=== PATIENT | female | born 1965 | race Caucasian/White ===

== ENCOUNTER → 2018-02-01 13:01 | Outpatient (CLI) | payer OTHER, SELFPAY ==
--- NOTE | 2018-02-01 | DI.CT.S_ITS ---
PROCEDURE: CT ABDOMEN PELVIS WO/W CON INDICATIONS: GROSS HEMATURIA TECHNIQUE: Optional 5 mm thick noncontrast images acquired from the diaphragm to the symphysis pubis. After the administration of intravenous contrast, 5 mm thick images acquired from the diaphragm to the symphysis pubis after a 10-minute delay. 2 mm thick coronal and sagittal reformats were then performed of the kidneys and ureters. For radiation dose reduction, the following was used: automated exposure control, adjustment of mA and/or kV according to patient size. COMPARISON: None. FINDINGS: Image quality: Excellent. Lung bases: Lung bases are clear. Heart size is normal. Urinary system: Both kidneys are normal in size, without hydronephrosis or nephrolithiasis on pre-contrast images. No perinephric fat stranding. There is normal bilateral renal enhancement. Renal calyces appear normal in morphology when filled with contrast. Opacified portions of both ureters demonstrate normal caliber. Bladder wall thickness is normal. No calcified bladder stones. Other solid organs: Liver is normal in size and enhancement. Gallbladder appears normal. Biliary system is non dilated. Pancreas enhances normally. Spleen is normal in size and enhancement. No adrenal nodules. Peritoneum and bowel: Bowel loops demonstrate normal wall thickness and caliber. No free fluid or air. Nodes and vessels: No retroperitoneal or mesenteric adenopathy by size criteria. Aorta and inferior vena cava are normal in size. Abdominal wall: No ventral hernias. Pelvis: No pathologic free pelvic fluid. No inguinal hernias or adenopathy. Bones: No suspicious bony lesions. No vertebral body compression fractures. IMPRESSION: No urinary tract stones seen, no renal cortical mass is identified throughout the visualized margins of the urothelium no suspicion for urothelial carcinoma is found. Dictated by: Zeeshan Cunningham M.D. on 02/01/2018 at 14:27 Approved by: Zeeshan Cunningham M.D. on 02/01/2018 at 14:27
== END ==
PROVIDERS: PCP Physician Assistant; Visit Provider Physician Assistant
DX: R31.0 Gross hematuria (principal)
CPT/HCPCS: 74178; Q9967

== ENCOUNTER → 2019-05-04 12:08 | Outpatient (CLI) | payer OTHER, SELFPAY ==
--- NOTE | 2019-05-04 | DI.MG.S_ITS ---
BILATERAL DIGITAL SCREENING MAMMOGRAM 3D/2D WITH CAD: 05/04/2019 CLINICAL: Routine screening. Comparison is made to exams dated: 05/18/2017 mammogram, 03/12/2016 mammogram - [facility], and 08/09/2014 mammogram - [facility] The tissue of both breasts is extremely dense, which lowers the sensitivity of mammography. Current study was also evaluated with a Computer Aided Detection (CAD) system. There is a mole marker on the right breast. No significant masses, calcifications, or other findings are seen in either breast. There has been no significant interval change. IMPRESSION: NEGATIVE There is no mammographic evidence of malignancy. A 1 year screening mammogram is recommended. This exam was interpreted at Station ID: [id number]. NOTE: For mammograms, a report in lay terms will be sent to the patient. Approximately 15% of breast malignancies will not be visualized mammographically. In the management of a palpable breast mass, a negative mammogram must not discourage biopsy of a clinically suspicious lesion. Electronically Signed By: Bebo gonzalez/marcelino:05/04/2019 13:22:38 letter sent: Normal Exam ACR BI-RADS Category 1: Negative 3341F
== END ==
PROVIDERS: PCP Physician Assistant; Visit Provider Physician Assistant
DX: Z12.31 Encounter for screening mammogram for malignant neoplasm of breast (principal)
CPT/HCPCS: 77063; 77067

== ENCOUNTER 2019-09-01 18:16 | Emergency (ER) | payer OTHER, SELFPAY ==
[2019-09-01 18:26] VITALS: BP 176/99; PULSE 112; RESP 18; TEMP 37; O2SAT 100; BMI 28.3
[2019-09-01 18:31] LABS: Bacteria Urine None Seen; WBC Urine None Seen (0-5/HPF)
[2019-09-01 18:32] LABS: Appearance Urine UA CLEAR; Bilirubin Urine UA NEGATIVE (NEGATIVE); Color Urine UA YELLOW; Glucose Urine UA NEGATIVE (Negative); Ketones Urine UA NEGATIVE (NEGATIVE); Leukocyte Esterase Urine UA NEGATIVE (NEGATIVE); Nitrite Urine UA NEGATIVE (Negative); Occult Blood Urine UA 3+ (Negative); Protein Urine UA NEGATIVE (Negative); Specific Gravity Urine UA <=1.005 (1.000-1.035); Urobilinogen Urine UA 0.2 E.U./dL (0.2)
[2019-09-01 18:35] LABS: pH Urine UA 6.5 (4.5-8.0)
[2019-09-01 18:46] LABS: Culture Indicated Urine Cult Not Indicated; RBC Urine 5-10/HPF (0-5/HPF); Squamous Epithelial Cell Urine None Seen (0-5/HPF)
--- NOTE | 2019-09-01 19:13 | ED_ITS ---
HPI - Female Genitourinary General Chief complaint: Urogenital-Female Stated complaint: states blood in urine for about a week Time Seen by Provider: 09/01/19 19:13 Source: patient Mode of arrival: Ambulatory Limitations: no limitations History of Present Illness HPI Narrative: 53-year-old female comes to the emergency department with complaint of hematuria. Patient states that she recently started having hematur ia. She was put on antibiotics after urine dip. Patient states that she finished Macrobid for 5 days and then noted she still had some hematuria. She has started have some frequency, dysuria but no urgency. She has had some hematuria in the past intermittently and has seen urology and had cystoscopy as well as CT scan which were both negative according to the patient. She has not had fevers, she denies any nausea or vomiting. She denies any abdominal pain. She denies any pelvic cramping. States she has had a hysterectomy but still has her ovaries in place. She denies any new vaginal discharge or bleeding. Patient states she has had some very mild discomfort in her left hip but not really in her flank and states that it's very mild and that she does not think that she has a kidney stone. Patient denies any other past medical history. No allergies to medication. She has follow-up on Tuesday with her primary care for recheck and further evaluation for hematuria. Related Data Previous Rx's Medication Instructions Recorded estradiol [Climara] 1 patch TOPICAL QWEEK #4 patch 06/01/16 Allergies Allergy/AdvReac Type Severity Reaction Status Date / Time No Known Drug Allergies Allergy Verified 09/01/19 18:25 Review of Systems Review of Systems ROS Unobtainable: All systems reviewed & are unremarkable except as noted in HPI and below Patient History Surgical History (Updated 01/17/18 @ 06:10 by Conversion Provider) History of third molar tooth extraction Status post laparoscopic supracervical hysterectomy (04/16/16) Substance Use Type: does not use Exam Narrative Exam Narrative: GENERAL: Alert and oriented x three, well-appearing female in no acute distress. HEENT: Head normocephalic, atraumatic, EOMI. NECK: Supple, full range of motion CARDIOVASCULAR: Regular rate and rhythm without murmurs, rubs or gallops. RESPIRATORY: Breath sounds equal bilaterally, no wheezes rales or rhonchi. ABDOMEN: Soft, nontender. Normoactive bowel sounds all 4 quadrants. No guarding or rebound, rigidity, no mass : No CVA tenderness EXTREMITIES: Normal range of motion, no clubbing or edema. Neurovascularly intact NEUROLOGICAL: Cranial nerves II through XII grossly intact. Moving all extremities SKIN: Warm, dry, no petechiae, no rashes or lesions. Initial Vital Signs Initial Vital Signs: Vital Signs Temperature 98.6 F 09/01/19 18:26 Pulse Rate 112 H 09/01/19 18:26 Respiratory Rate 18 09/01/19 18:26 Blood Pressure 176/99 H 09/01/19 18:26 Pulse Oximetry 100 09/01/19 18:26 Course Orders Ordered: ED Orders 09/01/19 18:25 Urinalysis and Microscopic Stat 09/01/19 19:48 US renal complete Stat 09/01/19 20:00 Complete Blood Count AUTO DIFF Stat Comprehensive Metabolic Panel Stat Lipase Stat 09/01/19 20:17 Urine Culture Stat Vital Signs Vital signs: Vital Signs - 8 hr 09/01/19 18:26 09/01/19 19:44 Temperature 98.6 F Pulse Rate 112 H 88 Respiratory Rate 18 16 Blood Pressure 176/99 H Blood Pressure [Right Arm] 163/93 H Pulse Oximetry 100 99 MDM - Female Genitourinary Lab Data Attestation: I reviewed the patient's lab results. Result diagrams: 09/01/19 20:00 09/01/19 20:00 Labs: Lab Results 09/01/19 09/01/19 09/01/19 Range/Units 18:25 20:00 20:00 WBC 4.4 L (4.5-11.0) X10^3/uL RBC 4.57 (4.0-5.2) X10^6/uL Hgb 14.5 (12.0-16.0) g/dL Hct 40.9 (36-46) % MCV 89.5 (80-100) fL MCH 31.7 (26-34) PG MCHC 35.4 (30-36) % RDW 12.4 (11.6-14.8) % Plt Count 203 (150-400) X10^3/uL Neut % (Auto) 54.6 (50-75) % Lymph % (Auto) 33.2 (25-40) % [place] % (Auto) 10.2 (3-14) % Eos % (Auto) 1.2 L (2-4) % Baso % (Auto) 0.8 (0-2) % Neut # (Auto) 2400 (8490-6177) /uL Lymph # (Auto) 1500 (3114-5774) /uL [place] # (Auto) 500 (0-900) /uL Eos # (Auto) 100 (0-450) /uL Baso # (Auto) 0 (0-100) /uL Sodium 137 (137-145) mmol/L Potassium 3.6 (3.4-5.1) mmol/L Chloride 102 (98-107) mmol/L Carbon Dioxide 29 (22-32) mmol/L BUN 14 (7-17) mg/dL Creatinine 0.70 (0.52-1.04) mg/dL Estimated GFR > 60.0 (>60) mL/min BUN/Creatinine Ratio 20.0 (6-22) Glucose 90 (70-100) mg/dL Calcium 9.9 (8.4-10.2) mg/dL Total Bilirubin 0.6 (0.2-1.3) mg/dL AST 39 H (14-36) IU/L ALT 23 (<35) IU/L Alkaline Phosphatase 89 (38-126) U/L Total Protein 7.7 (6.3-8.2) g/dL Albumin 4.5 (3.5-5.0) g/dL Globulin 3.2 (1.7-4.1) g/dL Albumin/Globulin Ratio 1.4 (1.0-2.8) Lipase 138 (23-300) U/L Urine Color Yellow Urine Appearance Clear Urine pH 6.5 (4.5-8.0) Ur Specific [place] <=1.005 (1.000-1.035) Urine Protein Negative (Negative) Urine Glucose (UA) Negative (Negative) g/dL Urine Ketones Negative (NEGATIVE) Urine Occult Blood 3+ H (Negative) Urine Nitrate Negative (Negative) Urine Bilirubin Negative (NEGATIVE) Urine Urobilinogen 0.2 (0.2) E.U./dL Ur Leukocyte Esterase Negative (NEGATIVE) Urine RBC 5-10/hpf H (0-5/HPF) Urine WBC None seen (0-5/HPF) Ur Squamous Epith Cells None seen (0-5/HPF) Urine Bacteria None seen (None) Ur Culture Indicated? Cult not indicated 09/01/19 Range/Units 20:00 WBC (4.5-11.0) X10^3/uL RBC (4.0-5.2) X10^6/uL Hgb (12.0-16.0) g/dL Hct (36-46) % MCV (80-100) fL MCH (26-34) PG MCHC (30-36) % RDW (11.6-14.8) % Plt Count (150-400) X10^3/uL Neut % (Auto) (50-75) % Lymph % (Auto) (25-40) % [place] % (Auto) (3-14) % Eos % (Auto) (2-4) % Baso % (Auto) (0-2) % Neut # (Auto) (6638-1526) /uL Lymph # (Auto) (0494-8778) /uL [place] # (Auto) (0-900) /uL Eos # (Auto) (0-450) /uL Baso # (Auto) (0-100) /uL Sodium (137-145) mmol/L Potassium (3.4-5.1) mmol/L Chloride (98-107) mmol/L Carbon Dioxide (22-32) mmol/L BUN (7-17) mg/dL Creatinine (0.52-1.04) mg/dL Estimated GFR (>60) mL/min BUN/Creatinine Ratio (6-22) Glucose (70-100) mg/dL Calcium (8.4-10.2) mg/dL Total Bilirubin (0.2-1.3) mg/dL AST (14-36) IU/L ALT (<35) IU/L Alkaline Phosphatase (38-126) U/L Total Protein (6.3-8.2) g/dL Albumin (3.5-5.0) g/dL Globulin (1.7-4.1) g/dL Albumin/Globulin Ratio (1.0-2.8) Lipase Cancelled (23-300) U/L Urine Color Urine Appearance Urine pH (4.5-8.0) Ur Specific [place] (1.000-1.035) Urine Protein (Negative) Urine Glucose (UA) (Negative) g/dL Urine Ketones (NEGATIVE) Urine Occult Blood (Negative) Urine Nitrate (Negative) Urine Bilirubin (NEGATIVE) Urine Urobilinogen (0.2) E.U./dL Ur Leukocyte Esterase (NEGATIVE) Urine RBC (0-5/HPF) Urine WBC (0-5/HPF) Ur Squamous Epith Cells (0-5/HPF) Urine Bacteria (None) Ur Culture Indicated? Imaging Data US - abdomen: Radiologist's impression: Kianna Burgess 53 F 1965 [place] [address] Ultrasound Report Signed Patient: Kianna Burgess LMR#: [id number] : 1965Acct:[id number] Age/Sex: 53 / FDate of Service: 09/01/19 Loc: ED Accession Number: [id number] Procedure: US renal complete Ordering Provider: Milena Gomez D.O. PROCEDURE: US RENAL COMPLETE INDICATIONS: HEMATURIA TECHNIQUE: Real-time scanning was performed of the kidneys and bladder, with image documentation. COMPARISON: None. FINDINGS: Kidneys: Kidneys are normal in size. Right kidney measures 10.4 cm long; left kidney measures 9.9 cm long. Right renal cortical thickness is 1.0 cm; left renal cortical thickness is 1.0 cm. Renal cortical echotexture is normal. No hydronephrosis or nephrolithiasis. No suspicious solid mass lesions. Bladder: Pre-void bladder volume is 81 mL. Post-void residual is 7 mL. Pre- void images demonstrate no intraluminal stones. There is a 0.7 x 0.4 x 0.4 exophytic nodule off the posterior right aspect of the bladder wall. On pre-void images, bilateral ureteral jets are noted with color Doppler interrogation. (Of note, ureteral jets may not be detectable in up to 25% of cases due to insufficient differences in specific gravity between ureteral and bladder urine). Miscellaneous: No free pelvic fluid. IMPRESSION: 1. No hydronephrosis. 2. Trace postvoid residual. 3. Exophytic nodule within the bladder wall as described above. Neoplasm cannot be excluded. Consider direct visualization to further characterize this finding. Dictated by: Olivia Fontenot M.D. on 09/01/2019 at 20:47 Approved by: Olivia Fontenot M.D. on 09/01/2019 at 20:49 MDM Narrative Medical decision making narrative: Discussed with patient she was offered opportunity have further workup with imaging and labs. She defers she states she has follow-up on Tuesday. We also discussed possibly doing a pelvic exam but she also defers this. She does have blood, she has had increasing symptoms consistent with a possible UTI and we discussed short course of antibiotics. Urine was sent for culture. I don't have access to her prior urinalysis or any culture is this was done outside facility. We did discuss possible differential including kidney stones, interstitial cystitis, other causes, patient could have vaginal involvement or irritation or bleeding. Patient later changed her mind, so will do labs and US. Labs show white count of 4.4 with slightly low eosinophils but otherwise normal differential. Shows AST of 39 otherwise normal electrolytes, renal function and abdominal labs. Ultrasound does show a nodule within the bladder wall which could likely be the cause of her hematuria. Direct visualization is recommended by Radiology. Patient has seen urology once before and referred back to them. Antibiotics held for now. Discharge Plan Departure Patient Disposition: Home Clinical Impression: Hematuria Discharge Date/Time: 09/01/19 21:26 Instructions: DI for Hematuria Activity Restrictions/Additional Instructions: Follow-up with urology for recheck and direct visualization or cystoscopy. Call for an appointment. There appears to be a nodule in the bladder wall and may be the cause of your hematuria. Below is referral to Urology at [facility] or you may follow-up with your prior urologist or one referred by your primary care physician Return to the ER for fevers greater 100.4 F, persistent vomiting, new abdominal, flank or increasing back pain, new vaginal bleeding, lightheadedness, passing out or other new or concerning symptoms. Prescriptions: No Action estradiol [Climara] 0.06 MG/24 HR patch weekly 1 patch Topical QWEEK Qty: 4 RF: 11 Referrals: Luis Carlos Mueller MD [Non-Staff] - Erika Garcia [Primary Care Provider] -
[2019-09-01 19:44] VITALS: BP 163/93; PULSE 88; RESP 16; O2SAT 99
--- NOTE | 2019-09-01 19:48 | DI.US.S_ITS ---
PROCEDURE: US RENAL COMPLETE INDICATIONS: HEMATURIA TECHNIQUE: Real-time scanning was performed of the kidneys and bladder, with image documentation. COMPARISON: None. FINDINGS: Kidneys: Kidneys are normal in size. Right kidney measures 10.4 cm long; left kidney measures 9.9 cm long. Right renal cortical thickness is 1.0 cm; left renal cortical thickness is 1.0 cm. Renal cortical echotexture is normal. No hydronephrosis or nephrolithiasis. No suspicious solid mass lesions. Bladder: Pre-void bladder volume is 81 mL. Post-void residual is 7 mL. Pre-void images demonstrate no intraluminal stones. There is a 0.7 x 0.4 x 0.4 exophytic nodule off the posterior right aspect of the bladder wall. On pre-void images, bilateral ureteral jets are noted with color Doppler interrogation. (Of note, ureteral jets may not be detectable in up to 25% of cases due to insufficient differences in specific gravity between ureteral and bladder urine). Miscellaneous: No free pelvic fluid. IMPRESSION: 1. No hydronephrosis. 2. Trace postvoid residual. 3. Exophytic nodule within the bladder wall as described above. Neoplasm cannot be excluded. Consider direct visualization to further characterize this finding. Dictated by: Olivia Fontenot M.D. on 09/01/2019 at 20:47 Approved by: Olivia Fontenot M.D. on 09/01/2019 at 20:49
[2019-09-01 20:19] LABS: Add Manual Diff / Slide Review NO; Basophils Absolute Auto 0 /uL (0-100); Basophils Percent Auto 0.8 % (0-2); Eosinophils Absolute Auto 100 /uL (0-450); Eosinophils Percent Auto 1.2 % (2-4); Hematocrit 40.9 % (36-46); Hemoglobin 14.5 g/dL (12.0-16.0); Lymphocytes Absolute Auto 1500 /uL (1100-4500); Lymphocytes Percent Auto 33.2 % (25-40); Mean Corpuscular HGB Conc 35.4 % (30-36); Mean Corpuscular Hemoglobin 31.7 PG (26-34); Mean Corpuscular Volume 89.5 fL (80-100); Monocytes Absolute Auto 500 /uL (0-900); Monocytes Percent Auto 10.2 % (3-14); Neutrophils Absolute Auto 2400 /uL (1500-7000); Neutrophils Percent Auto 54.6 % (50-75); Platelet Count 203 X10^3/uL (150-400); Red Blood Cell Count 4.57 X10^6/uL (4.0-5.2); Red Cell Distribution Width 12.4 % (11.6-14.8); White Blood Cell Count 4.4 X10^3/uL (4.5-11.0)
[2019-09-01 20:47] LABS: Alanine Aminotransferase 23 IU/L (<35); Albumin 4.5 g/dL (3.5-5.0); Albumin Globulin Ratio 1.4 (1.0-2.8); Alkaline Phosphatase 89 U/L (38-126); Aspartate Aminotransferase 39 IU/L (14-36); Bilirubin Total 0.6 mg/dL (0.2-1.3); Blood Urea Nitrogen 14 mg/dL (7-17); Calcium 9.9 mg/dL (8.4-10.2); Carbon Dioxide 29 mmol/L (22-32); Chloride 102 mmol/L (98-107); Estimated Glomerular Filt Rate > 60.0 mL/min (>60); Globulin 3.2 g/dL (1.7-4.1); Glucose 90 mg/dL (70-100); HEMOLYSIS < 15 (0-50); Lipase 138 U/L (23-300); Potassium 3.6 mmol/L (3.4-5.1); Sodium 137 mmol/L (137-145); Total Protein 7.7 g/dL (6.3-8.2)
[2019-09-01 21:17] VITALS: BP 154/90; PULSE 79; RESP 16; O2SAT 99
== END 2019-09-01 21:26 | disposition home or self-care (01) ==
PROVIDERS: Emergency Provider Emergency Medicine; PCP Physician Assistant Medical
DX: R31.9 Hematuria, unspecified (principal); R79.89 Other specified abnormal findings of blood chemistry
CPT/HCPCS: 36415; 76770; 80053; 81001; 83690; 85025; 87086; 99283; 99284

== ENCOUNTER → 2019-09-14 09:56 | Outpatient (CLI) | payer OTHER, SELFPAY ==
--- NOTE | 2019-09-14 10:18 | DI.CT.S_ITS ---
PROCEDURE: CT ABDOMEN PELVIS WO/W CON INDICATIONS: Gross hematuria TECHNIQUE: Optional 5 mm thick noncontrast images acquired from the diaphragm to the symphysis pubis. After the administration of intravenous contrast, 5 mm thick images acquired from the diaphragm to the symphysis pubis after a 10-minute delay. 2 mm thick coronal and sagittal reformats were then performed of the kidneys and ureters. For radiation dose reduction, the following was used: automated exposure control, adjustment of mA and/or kV according to patient size. COMPARISON: [facility], CT, CT ABDOMEN PELVIS WO/W CON, 02/01/2018, 13:43. FINDINGS: Image quality: Excellent. Lung bases: Lung bases are clear. Heart size is normal. Urinary system: Both kidneys are normal in size, without hydronephrosis or nephrolithiasis on pre-contrast images. No perinephric fat stranding. There is normal bilateral renal enhancement. Renal calyces appear normal in morphology when filled with contrast. Opacified portions of both ureters demonstrate normal caliber. Bladder wall thickness is normal. No calcified bladder stones. Other solid organs: Liver is normal in size and enhancement. Gallbladder appears normal where well seen. Biliary system is non dilated. Pancreas enhances normally. Spleen is normal in size and enhancement. No adrenal nodules. Peritoneum and bowel: Bowel loops demonstrate normal wall thickness and caliber. No free fluid or air. Nodes and vessels: No retroperitoneal or mesenteric adenopathy by size criteria. Aorta and inferior vena cava are normal in size. Abdominal wall: No ventral hernias. Pelvis: No pathologic free pelvic fluid. No inguinal hernias or adenopathy. Bones: No suspicious bony lesions. No vertebral body compression fractures. IMPRESSION: No urothelial mass lesion or renal cortical mass is found. No urinary tract stone is seen. A definite source of hematuria is not identified by this examination A punctate calcification is incidentally noted at the anterior superior midline of the bladder, at the expected earache this origin, measuring only approximately 2 mm in diameter. This was previously present on CT scanning 02/01/18 and likely is a coincidental calcification within the urachal origin. No mass is associated. Dictated by: Zeeshan Cunningham M.D. on 09/14/2019 at 14:43 Approved by: Zeeshan Cunningham M.D. on 09/14/2019 at 14:46
== END ==
PROVIDERS: PCP Physician Assistant Medical; Visit Provider Nurse Practitioner
DX: R31.0 Gross hematuria (principal)
CPT/HCPCS: 74178; Q9967

== ENCOUNTER → 2020-06-09 17:28 | Outpatient (CLI) | payer OTHER, SELFPAY ==
--- NOTE | 2020-06-09 17:31 | DI.MG.S_ITS ---
BILATERAL DIGITAL SCREENING MAMMOGRAM 3D/2D WITH CAD: 06/09/2020 CLINICAL: Routine screening. Comparison is made to exams dated: 05/04/2019 mammogram, 05/18/2017 mammogram, and 03/12/2016 mammogram - [facility]. The tissue of both breasts is extremely dense, which lowers the sensitivity of mammography. Current study was also evaluated with a Computer Aided Detection (CAD) system. There is a mole marker on the right breast. No significant masses, calcifications, or other findings are seen in either breast. There has been no significant interval change. IMPRESSION: NEGATIVE There is no mammographic evidence of malignancy. A 1 year screening mammogram is recommended. This exam was interpreted at Station ID: [id number]. NOTE: For mammograms, a report in lay terms will be sent to the patient. Approximately 15% of breast malignancies will not be visualized mammographically. In the management of a palpable breast mass, a negative mammogram must not discourage biopsy of a clinically suspicious lesion. Electronically Signed By: Austin Muhammad M.D., jr/marcelino:06/10/2020 08:17:22 letter sent: Normal Exam ACR BI-RADS Category 1: Negative 3341F
== END ==
PROVIDERS: PCP Physician Assistant Medical; Referring Provider Physician Assistant Medical; Visit Provider Physician Assistant Medical
DX: Z12.31 Encounter for screening mammogram for malignant neoplasm of breast (principal)
CPT/HCPCS: 77063; 77067

== ENCOUNTER → 2020-12-12 16:06 | Outpatient (CLI) | payer OTHER, SELFPAY ==
--- NOTE | 2020-12-12 16:09 | DI.US.S_ITS ---
PROCEDURE: US ABDOMEN COMPLETE INDICATIONS: ABNORMAL LEVELS OF OTHER SERUM ENZYMES TECHNIQUE: Real-time scanning was performed of the abdominal and retroperitoneal organs, with image documentation. COMPARISON: [facility], CT, CT ABDOMEN PELVIS WO/W CON, 09/14/2019, 10:17. FINDINGS: Liver: Liver is normal in size and homogeneous in echotexture. Gallbladder: No findings of gallstones or sludge are seen. The gallbladder wall is not thickened, measuring 3 mm or less. No specific pericholecystic fluid is seen. The sonographic Mohr sign is negative. Biliary ducts: Intrahepatic bile ducts are non-dilated. Extrahepatic bile duct caliber measures 4 mm. Normal is 6-7 mm or less in diameter, or 10 mm or less post-cholecystectomy. Pancreas: Visualized portions of the pancreas are sonographically normal. Spleen: Spleen is normal in size and homogeneous in echotexture. Kidneys: Kidneys are normal in size and echotexture. Right kidney measures 9.9 cm long; left kidney measures 10.4 cm long. No hydronephrosis or nephrolithiasis. No solid masses. Aorta: Visualized aorta is normal in caliber at less than 3 cm. Iliacs: Proximal common iliac arteries are normal in caliber at less than 2.5 cm. IVC: Intrahepatic inferior vena cava is patent. Miscellaneous: No free abdominal fluid. IMPRESSION: Normal appearing liver by ultrasound. The gallbladder demonstrates a normal sonographic appearance. No biliary dilatation is seen. Dictated by: Shon Fierro M.D. on 12/12/2020 at 16:43 Approved by: Shon Fierro M.D. on 12/12/2020 at 16:43
== END ==
PROVIDERS: PCP Physician Assistant Medical; Referring Provider Physician Assistant Medical; Visit Provider Physician Assistant Medical
DX: R74.8 Abnormal levels of other serum enzymes (principal)
CPT/HCPCS: 76700

== ENCOUNTER 2021-01-05 13:51 | Emergency (ER) | payer OTHER, SELFPAY ==
--- NOTE | 2021-01-05 13:55 | DI.RAD.S_ITS ---
PROCEDURE: XR WRIST RT MIN 3V INDICATIONS: fall, rt wrist pain TECHNIQUE: 4 views of the wrist were acquired. COMPARISON: None. FINDINGS: Bones: No dislocations. No suspicious bony lesions. There is a fracture involving the distal radius, relatively subtle, with a nondisplaced fracture plane extending dorsal-ventral across the middle 3rd of the distal radius articular surface. Scaphoid view: No trauma to the scaphoid is found. Soft tissues: No suspicious soft tissue calcifications. IMPRESSION: Distal radius fracture, without abnormal angulation abnormality but extending into the articular surface. Elsewhere no trauma. Dictated by: Zeeshan Cunningham M.D. on 01/05/2021 at 14:23 Approved by: Zeeshan Cunningham M.D. on 01/05/2021 at 14:25
[2021-01-05 13:56] VITALS: BP 183/89; PULSE 95; RESP 22; TEMP 36.6; O2SAT 100
--- NOTE | 2021-01-05 15:19 | ED.GENADULT ---
HPI - General Adult General Chief complaint: Extremity Injury, Upper Stated complaint: SUSPECTS BROKEN RIGHT WRIST, CAN'T MOVE Time Seen by Provider: 01/05/21 15:11 Source: patient Mode of arrival: Ambulatory Limitations: no limitations History of Present Illness HPI narrative: Patient is a 55-year-old exuvf-hhwa-hfrepbie female here for evaluation for right wrist injury. Patient states she was at work which she was taking her kids out onto the playground the next thing that she knew she was falling forward. She did catch herself with both the forearms however it is her right wrist that she is having discomfort with. She is having pain with movement. No prior injuries. Reports no other injuries from the event except for which she thinks is an abrasion to her left knee. Related Data Previous Rx's Medication Instructions Recorded estradiol [Climara] 1 patch TOPICAL QWEEK #4 patch 06/01/16 hydrocodone-acetaminophen 1 tab PO Q4-6H PRN #14 tab 01/05/21 Allergies Allergy/AdvReac Type Severity Reaction Status Date / Time No Known Drug Allergies Allergy Verified 09/01/19 18:25 Review of Systems Constitutional Constitutional: Denies fatigue and Denies fever(s) Cardiovascular Cardiovascular: Denies chest pain and Denies dyspnea Respiratory Respiratory: Denies dyspnea Gastrointestinal Gastrointestinal: Denies abdominal pain Musculoskeletal Comments: Right wrist pain Integumentary/Breasts Comments: Potential abrasion to left knee Neurologic Neurologic: Denies confusion Comments: Tingling to the tip of the right index finger Psychiatric Psychiatric: Denies confusion Endocrine Endocrine: Denies fatigue Hematologic/Lymphatic On Anticoagulants: No Allergic/Immunologic Allergic/Immunologic: Denies urticaria Patient History Medical History Dysmenorrhea Fibroid uterus Surgical History (Updated 01/17/18 @ 06:10 by Conversion Provider) History of third molar tooth extraction Status post laparoscopic supracervical hysterectomy (04/16/16) Social History Smoking Status: Never smoker Smoking Status: Never smoker Substance Use Type: does not use Exam Initial Vital Signs Initial Vital Signs: Vital Signs Temperature 97.8 F 01/05/21 13:56 Pulse Rate 95 H 01/05/21 13:56 Respiratory Rate 22 01/05/21 13:56 Blood Pressure 183/89 H 01/05/21 13:56 Pulse Oximetry 100 01/05/21 13:56 Const General: cooperative and comfortable Limitations: mental status not altered HENMT Head: normal to inspection and normocephalic Resp Effort & Inspection: normal respiratory effort Cardio Pulses: radial pulses present on the right Skin Other: Superficial abrasion left anterior knee. Neuro Other: Sensation is intact to light touch to the right hand except for just the very tip of the index finger where she reports tingling Extrem Other: Right shoulder right arm right elbow and right forearm is unremarkable except for tenderness to palpation along the distal radius. She cannot flex and extend at the wrist. Has no tenderness over the anatomic snuffbox. Her right hand exam is unremarkable. The rest of her orthopedic exam is unremarkable. Psych Appearance: grossly normal and well kempt Procedures Orthopedic Splinting/Casting Injury #1: Side: right Upper Extremity Injury Location: wrist Upper Extremity Immobilizer: thumb spica Post splinting neuro exam: no change Post splinting vascular exam: no change Placed by: Nursing Course Orders Ordered: ED Orders 01/05/21 13:55 XR wrist RT min 3V Stat Discontinued Medications Hydrocodone Bitart/Acetaminophen (Hydrocodone/Acet 5/325 Tablet) 1 tab PO NOW ONE Stop: 01/05/21 15:20 Last Admin: 01/05/21 15:27 Dose: 1 tab Documented by: SHELLY Vital Signs Vital signs: Vital Signs - 8 hr 01/05/21 13:56 Temperature 97.8 F Pulse Rate 95 H Respiratory Rate 22 Blood Pressure 183/89 H Pulse Oximetry 100 Medical Decision Making Imaging Data Extremity x-ray #1: Radiologist's Impression: [address] [id number] ReportSigned Patient: Kianna Burgess LMR#: [id number]: 1965Acct:[id number]/Sex: 55 / FDate of Service: 01/05/21Loc: EDAccession Number: [id number] Procedure: XR wrist RT min 3V Ordering Provider: Paz Stokes MD PROCEDURE: XR WRIST RT MIN 3V INDICATIONS: fall, rt wrist pain TECHNIQUE: 4 views of the wrist were acquired. COMPARISON: None. FINDINGS: Bones: No dislocations. No suspicious bony lesions. There is a fracture involving the distal radius, relatively subtle, with a nondisplaced fracture plane extending dorsal-ventral across the middle 3rd of the distal radius articular surface. Scaphoid view: No trauma to the scaphoid is found. Soft tissues: No suspicious soft tissue calcifications. IMPRESSION: Distal radius fracture, without abnormal angulation abnormality but extending into the articular surface. Elsewhere no trauma. Dictated by: Zeeshan Cunningham M.D. on 01/05/2021 at 14:23 Approved by: Zeeshan Cunningham M.D. on 01/05/2021 at 14:25 [facility] Narrative Medical decision making narrative: Skin abrasion over the left knee needs no intervention here in the ER. X-ray does show a distal radius fracture in this does correspond to her physical exam. She was placed in a splint and was given care instructions with regard to this. She was also given instructions to contact the orthopedic group here in [facility] for follow-up. He is given return precautions. She expressed understanding agreement. Discharge Plan Departure Patient Disposition: Home Clinical Impression: Distal radius fracture, right, Abrasion of skin, Fall Instructions: How to Take Care of Your Splint, DI for Distal Radius Fracture Activity Restrictions/Additional Instructions: The splint does need to stay on in stay clean and stay dry. Tomorrow contact your primary doctor also the [facility] group at [phone]. Take the pain medicine is needed. Return to the emergency department for any new or worsening symptoms. A prescription for pain medication was electronically transmitted to [facility] in [place]. Prescriptions: New hydrocodone-acetaminophen 5-325 mg tablet 1 tab PO Q4-6H PRN (Reason: pain) Qty: 14 RF: 0 No Action estradiol [Climara] 0.06 MG/24 HR patch weekly 1 patch Topical QWEEK Qty: 4 RF: 11 Referrals: Flako Pond MD [Physician] - Erika Garcia [Primary Care Provider] -
[2021-01-05] MEDS: HYDROCODONE/ACET 5/325 TABLET 1 TAB PO (15:27)
[2021-01-05 15:55] VITALS: BP 166/92; PULSE 79; RESP 18; O2SAT 100
== END 2021-01-05 16:05 | disposition home or self-care (01) ==
PROVIDERS: Emergency Provider Emergency Medicine; PCP Physician Assistant Medical
DX: S52.501A Unspecified fracture of the lower end of right radius, initial encounter for closed fracture (principal); S80.212A Abrasion, left knee, initial encounter; W19.XXXA Unspecified fall, initial encounter; Y99.0 Civilian activity done for income or pay
CPT/HCPCS: 29125; 73110; 99283

== ENCOUNTER → 2021-01-26 10:49 | Outpatient (CLI) | payer OTHER, SELFPAY | PROVIDERS: PCP Physician Assistant Medical; Referring Provider Orthopaedic Surgery; Visit Provider Orthopaedic Surgery | DX: S69.91XA Unspecified injury of right wrist, hand and finger(s), initial encounter (principal); Z53.8 Procedure and treatment not carried out for other reasons ==

== ENCOUNTER → 2021-02-10 07:29 | Outpatient (CLI) | payer OTHER, SELFPAY ==
--- NOTE | 2021-02-10 | DI.RAD.S_ITS ---
PROCEDURE: FL WRIST INJECTION MR/CT RT INDICATIONS: Right scapholunate ligament with no instability COMPARISON: None. TECHNIQUE: After informed consent had been obtained, the wrist was examined fluoroscopically, and a site chosen for injection of the radiocarpal compartment from a dorsal approach. Skin was prepped and draped in a sterile fashion and 1% lidocaine infiltrated from the skin down to the articular surface. A hypodermic needle was then introduced into the articular space and a modest amount of contrast medium was instilled confirming intra-articular needle tip placement. This was followed by approximately 4 mL of a dilute Optiray solution. Needle was removed and dressing was applied. The patient experienced no complications throughout the procedure and left the fluoroscopic suite in no apparent distress. FINDINGS: A single fluoroscopic spot image demonstrates intra-articular location to injected iodinated contrast. IMPRESSION: Successful fluoroscopic-guided administration of dilute Optiray solution for wrist CT arthrogram. Dictated by: Victor M Sy M.D. on 02/10/2021 at 12:56 Approved by: Victor M Sy M.D. on 02/10/2021 at 12:57
--- NOTE | 2021-02-10 09:01 | DI.CT.S_ITS ---
PROCEDURE: CT UE RT W CON INDICATIONS: Right scapholunate ligament with no instability TECHNIQUE: After the intra-articular administration of 3 mL of dilute non-ionic contrast, 1-1.5 mm thick sections acquired through the wrist, with coronal and sagittal reformatting. COMPARISON: [facility], CR, XR WRIST 3+ VIEWS RIGHT, 01/14/2021, 9:18. [facility], CR, XR WRIST RT MIN 3V, 01/05/2021, 14:08. FINDINGS: Image quality: Excellent. Bones: Comminuted intra-articular fracture of the distal radius, and ulnar styloid tip fracture also noted. There is some callus formation with partial bridging ossification of the radial fracture for example image 69/6, image 44/5. Persistent fracture lucency is noted. There is approximately 1 mm of diastasis of the distal radial articular surface. Soft tissues: Widened appearance of the scapholunate interval is noted measuring approximately 3-4 mm. However, no leakage of injected contrast material into the midcarpal compartment to suggest full-thickness tear. Scapholunate ligament sprain is in the differential. There is faint contrast material seen within the distal radial joint suggesting occult full-thickness pinpoint perforation. There is partial-thickness appearing tear of the TFCC at the junction of the central disc and radial attachment for example image 49/5. IMPRESSION: Comminuted intra-articular distal radial fracture with partial bridging ossification. Persistent fracture lucency is noted, in particular at the dorsal aspect. Ulnar styloid tip fracture in unchanged alignment. Widened appearance of the scapholunate interval suggestive of ligamentous sprain however no definite mid-carpal compartment contrast material to suggest full-thickness defect. Partial-thickness appearing tear of the TFCC at the junction of the central disc and radial attachment, however faint contrast material is seen within the distal radioulnar joint suggestive of occult full-thickness pinpoint perforation. No gross focal full-thickness ulnar or lunate chondral defect is seen within the limitations of CT imaging. Dictated by: Victor M Sy M.D. on 02/10/2021 at 10:32 Approved by: Victor M Sy M.D. on 02/10/2021 at 10:39
== END ==
PROVIDERS: PCP Physician Assistant Medical; Referring Provider Orthopaedic Surgery; Visit Provider Orthopaedic Surgery
DX: S52.571A Other intraarticular fracture of lower end of right radius, initial encounter for closed fracture (principal); S52.611A Displaced fracture of right ulna styloid process, initial encounter for closed fracture; X58.XXXA Exposure to other specified factors, initial encounter
CPT/HCPCS: 20605; 73201; 77002

== ENCOUNTER → 2021-02-28 13:16 | Outpatient (CLI) | payer OTHER, SELFPAY ==
[2021-02-28 13:40] LABS: COVID19 -Nasal RAPID Negative (Negative)
== END ==
PROVIDERS: PCP Physician Assistant Medical; Visit Provider Physician Assistant
DX: Z20.822 Contact with and (suspected) exposure to COVID-19 (principal)
CPT/HCPCS: 87635

== ENCOUNTER → 2022-06-07 16:37 | Outpatient (CLI) | payer OTHER, SELFPAY ==
--- NOTE | 2022-06-07 16:40 | DI.MG.S_ITS ---
BILATERAL DIGITAL SCREENING MAMMOGRAM 3D/2D WITH CAD: 06/07/2022 CLINICAL: Routine screening. Comparison is made to exams dated: 06/09/2020 mammogram, 05/04/2019 mammogram, and 05/18/2017 mammogram - [facility]. Both breasts are extremely dense, which lowers the sensitivity of mammography (category d />75% glandular tissue). Current study was also evaluated with a Computer Aided Detection (CAD) system. There is a mole marker on the right breast. No significant masses, calcifications, or other findings are seen in either breast. There has been no significant interval change. IMPRESSION: NEGATIVE There is no mammographic evidence of malignancy. A 1 year screening mammogram is recommended. This exam was interpreted at Station ID: [id number]. NOTE: For mammograms, a report in lay terms will be sent to the patient. Approximately 15% of breast malignancies will not be visualized mammographically. In the management of a palpable breast mass, a negative mammogram must not discourage biopsy of a clinically suspicious lesion. Electronically Signed By: Jayy swartz/marcelino:06/08/2022 07:55:58 letter sent: Normal Exam ACR BI-RADS Category 1: Negative [id number]
== END ==
PROVIDERS: Referring Provider Registered Nurse; Visit Provider Registered Nurse
DX: Z12.31 Encounter for screening mammogram for malignant neoplasm of breast (principal)
CPT/HCPCS: 77063; 77067

== ENCOUNTER → 2023-06-22 16:42 | Outpatient (CLI) | payer OTHER, SELFPAY ==
--- NOTE | 2023-06-22 16:46 | DI.MG.S_ITS ---
BILATERAL DIGITAL SCREENING MAMMOGRAM 3D/2D WITH CAD: 06/22/2023 CLINICAL: Routine screening. Comparison is made to exams dated: 06/07/2022 mammogram, 06/09/2020 mammogram, and 05/04/2019 mammogram - [facility]. Both breasts are extremely dense, which lowers the sensitivity of mammography (category d />75% glandular tissue). Current study was also evaluated with a Computer Aided Detection (CAD) system. There is a mole marker on the right breast. There are mole markers on the left breast. No significant masses, calcifications, or other findings are seen in either breast. There has been no significant interval change. IMPRESSION: NEGATIVE There is no mammographic evidence of malignancy. A 1 year screening mammogram is recommended. Based on the Tyrer Cuzick model (a risk assessment model) the patient's lifetime risk is 11.4% and her 10 year risk is 4.2%. According to the ACR, ACS, and NCCN guidelines, an annual breast MRI exam along with mammogram is recommended if the patient's lifetime risk is 20% or greater. This exam was interpreted at Station ID: [id number]. NOTE: For mammograms, a report in lay terms will be sent to the patient. Approximately 15% of breast malignancies will not be visualized mammographically. In the management of a palpable breast mass, a negative mammogram must not discourage biopsy of a clinically suspicious lesion. Electronically Signed By: Olivia matamoros/marcelino:06/23/2023 16:13:01 copy to: BERTO GARCIA letter sent: Normal Exam ACR BI-RADS Category 1: Negative 3341F
== END ==
PROVIDERS: PCP Physician Assistant; Referring Provider Physician Assistant; Visit Provider Physician Assistant
DX: Z12.31 Encounter for screening mammogram for malignant neoplasm of breast (principal)
CPT/HCPCS: 77063; 77067

== ENCOUNTER 2024-03-20 08:07 | Day surgery (SDC) | payer OTHER, SELFPAY ==
[2024-03-16 08:04] VITALS: BMI 29.6
[2024-03-20] VITALS (8 sets, daily range): BP systolic 130–185; BP diastolic 72–93; PULSE 82–110; RESP 13–18; TEMP 36.3–37.3; O2SAT 97–100; BMI 29.6
[2024-03-20] MEDS: ACETAMINOPHEN 325 MG TABLET 975 MG PO (08:38)
[2024-03-20] MEDS: SCOPOLAMINE 1 PATCH TOP (08:38)
[2024-03-20] MEDS: LACTATED RINGERS 1,000 ML 21 ML IV (09:05)
--- NOTE | 2024-03-20 09:42 | PM.PREOP ---
Pre-operative Note Interval Note History & Physical reviewed/Exam performed by Physician: Yes Changes to H&P: No H&P completed within 30 days and has changed as indicated here:: 03/07/24
[2024-03-20] MEDS: CEFAZOLIN 2 GM/100 ML PREMIX 100 ML IV (10:00)
--- NOTE | 2024-03-20 10:09 | SUR.OPER ---
Lithotomy on padded OR bed, head on pillow, arms secured on padded arm boards at <90 degrees abduction. Legs secured in padded yellow fins stirrups.
[2024-03-20] MEDS: BUPIVACAINE 0.25% (PF) 30 ML, EPINEPHrine 0.15 MG INJ (10:13)
--- NOTE | 2024-03-20 11:41 | PM.GYNOP.1 ---
Operative Date/Time/Diagnoses Date of procedure: 03/20/24 Time of procedure: 11:41 Pre-op diagnosis: Symptomatic cystocele and rectocele Post-op diagnosis: same Procedure & Clinicians Procedure: Procedures Operation Date: 03/20/24 09:15 Actual Procedure Side Surgeon p Anterior/Posterior Repair, sacrospinous ligament fixation Leia Hernández MD Indications: 58 year old with a symptomatic cystocele and rectocele Surgeon: Leia Hernández Stained Glass Glazier: Tom Ch Anesthesia Type: General and Local Operative Notes Findings: Third degree cystocele and rectocele Second degree uterine prolaps Closure Type: primary Applied: catheter and other (Betadine moistened vaginal packing) Estimated blood loss (mL): 50 Blood products transfused: none Procedure in detail: 2 Allis clamps were placed at the apex of the cystocele. 6 mL of half percent Marcaine with epinephrine were injected and an incision was made with a #10 blade between the 2 Allis clamps. Wide Allis clamps were placed on the midline of the cystocele approximately 7. The mucosa was undermined using the Metzenbaum scissors and the mucosa incised in the midline moving the wide Allis clamps to the edges of the mucosa. The mucosa was dissected off the underlying fascia using an open moistened Ray-Vernon and a #10 blade. The fascia was reapproximated with 0 Vicryl with a series of horizontal mattress sutures. The excess vaginal mucosa was excised. The mucosa was closed using simple interrupted sutures with 2-0 Vicryl including the underlying fascia to close the space. The weighted speculum was removed from the vagina. Allis clamps were placed at the mucocutaneous junction at the introitus. 6 mL of half percent Marcaine with epinephrine were injected. An incision was made with a #10 blade between the 2 Allis clamps, and a triangular piece of skin and underlying subcutaneous tissue was removed. Allis clamps were placed in the midline of the rectocele. 10 mL of half percent Marcaine with epinephrine were injected submucosally. The mucosa was undermined using the Metzenbaum scissors and the mucosa incised in the midline, moving the wide Allis clamps to the mucosal edges. The underlying fascia was dissected off of th mucosa using an open moistened Ray-Vernon and a #10 blade. The space around the right sacral spinous ligament was cleared bluntly using 2 fingers. Using the Capio needle, a Prolene suture was placed through the sacral spinous ligament 2 cm from the ischial spine. Using the other needle a large bite was placed into the cervix. The fascia was reapproximated using 0 Vicryl. Three sutures were placed. The excess vaginal mucosa was removed with Metzenbaum scissors.. The sacral spinous ligament suture was tied down elevating the cervix. The remainder of the fascia was closed with 0 Vicryl. The mucosa was closed with 2-0 Vicryl with simple interrupted sutures. On the perineum the levators were brought together with 0 Vicryl. 2-0 Vicryl was used for the more superficial stitches. The skin was closed with 3-0 chromic in a subcuticular fashion. Hemostasis was achieved. A Betadine moistened vaginal pack was placed into the vagina. A rectal exam was done and there were no sutures palpable in the rectum. The urine was clear. Sponge, lap, and instrument counts were correct x-2. The patient tolerated the procedure well, was taken to PACU in stable condition.m Complications: none Post-operative Condition: stable Disposition: PACU Plan for aftercare: Home after recovery
[2024-03-20] MEDS: ONDANSETRON 4 MG/2 ML INJ IV (11:57)
[2024-03-20] MEDS: OXYCODONE IR 5 MG TABLET PO (14:16)
[2024-03-20] MEDS: ACETAMINOPHEN 325 MG TABLET 650 MG PO ×2 (15:56→21:15)
[2024-03-20] MEDS: KETOROLAC 30 MG/ML VIAL IV (17:09)
[2024-03-20] MEDS: DOCUSATE 100 MG CAPSULE 200 MG PO (21:15)
[2024-03-21] MEDS: IBUPROFEN 600 MG TABLET PO ×2 (01:34→11:10)
[2024-03-21] MEDS: ACETAMINOPHEN 325 MG TABLET 650 MG PO (05:10)
[2024-03-21 06:53] LABS: Add Manual Diff / Slide Review NO; Basophils Absolute Auto 100 /uL (0-100); Basophils Percent Auto 0.7 % (0-2); Eosinophils Absolute Auto 0 /uL (0-450); Eosinophils Percent Auto 0.1 % (2-4); Hematocrit 38.2 % (36-46); Hemoglobin 13.2 g/dL (12.0-16.0); Lymphocytes Absolute Auto 1400 /uL (1100-4500); Lymphocytes Percent Auto 13.5 % (25-40); Mean Corpuscular HGB Conc 34.6 % (30-36); Mean Corpuscular Hemoglobin 31.1 PG (26-34); Mean Corpuscular Volume 89.9 fL (80-100); Monocytes Absolute Auto 800 /uL (0-900); Monocytes Percent Auto 7.7 % (3-14); Neutrophils Absolute Auto 8200 /uL (1500-7000); Platelet Count 216 X10^3/uL (150-400); Red Blood Cell Count 4.25 X10^6/uL (4.0-5.2); Red Cell Distribution Width 12.8 % (11.6-14.8); White Blood Cell Count 10.6 X10^3/uL (4.5-11.0)
--- NOTE | 2024-03-21 08:29 | PC.NURSE ---
0800 - This RN in room, patient states has been drinking fluids but unable to urinate. Urinary catheter removed at 0600 per patient, advised to attempt to urinate frequently, filled peribottle with warm water, will bladder scan at 4 hours to assess and will contact provider if unable to urinate. Patient denies bleeding from vagina, states pain is well controlled with tylenol and ibuprofen. Is waiting to take levothyroxine at 0930 and would like ibuprofen at that time as well. Stated that she was able to have bowel movement without difficulty.
--- NOTE | 2024-03-21 09:40 | PC.NURSE ---
0930 - Cumulative output at this point is 250ml. 150ml out at 0845, 100ml out at 0920.
[2024-03-21 10:04] VITALS: BP 136/72; PULSE 66; RESP 16; TEMP 36.1; O2SAT 99
--- NOTE | 2024-03-21 12:05 | PC.NURSE ---
1045 - Bladder scan post void residual 397ml. Per Dr. Maloney, patient will need to learn to self catheterize in order to prevent bladder over distension. Patient able to void frequently 100-150ml at a time, however not able to void completely. 1145 - Dr. Maloney at bedside assisting patient with self catheterization. Patient able to do with assistance. Supplies given to patient. Dr. Maloney will put discharge orders in.
--- NOTE | 2024-03-21 12:12 | PM.DS.1 ---
History of Present Illness History of Present Illness Date Patient Seen: 03/21/24 Time Patient Seen: 12:13 Chief complaint: Anterior/Posterior Repair /SSLF Discharge Providers Provider Discharge Date: 03/21/24 Primary care physician: Isis Sosa DO Discharge provider: Deborah Maloney MD Summary Hospital Course Discharge Diagnosis: Symptomatic cystocele and rectocele with cervical stump prolapse Hospital Course: Patient underwent a anterior and posterior repair with sacrospinous ligament fixation to her cervical stump on 03/20/2024. Patient had her catheter and vaginal packing removed this morning. Patient had frequent small voids totaling 250 cc with postvoid residual after 4 hours of 397cc. Patient given options to watch further, place a Fonseca catheter for several days to allow swelling to decrease, or self catheterization teaching. Patient was agreeable to try self catheterization. She was shown how to do the procedure. She is to catheterize herself several times a day and especially if she feels that her bladder is getting more uncomfortable. If she is unable to urinate and unable to catheterize herself she needs to present to the emergency room for placement of a Fonseca catheter. If she has had no improvement frequency of need to catheterize herself she is to call on 03/26/2024. Patient has minimal bleeding. Minimal pain. She has had a bowel movement. She is ambulatory. Status at Discharge Cognitive/behavioral status at discharge: oriented Functional status at discharge: independent ambulation Overall status at discharge: other (Urinary retention) Time Spent with Patient Time spent: Less than 30 minutes Exam Vital Signs (past 8 hours): - 03/21/24 10:04 Temperature 97.0 F L Pulse Rate 66 Respiratory Rate 16 Blood Pressure 136/72 Pulse Oximetry 99 Oxygen Delivery Method Room Air Oxygen Flow Rate 2 Narrative Exam Narrative: Abdomen is soft, nontender. Minimal vaginal bleeding. Patient was shown with a mirror how to catheterize herself. She was given 3 self caths and advised she could put them in boiling water for 30 seconds to sterilized in between. Patient is to clean herself with wet wipes prior to catheterization. Objective Labs 03/21/24 06:40 Labs: Laboratory Results - last 24 hr 03/21/24 06:40 WBC 10.6 RBC 4.25 Hgb 13.2 Hct 38.2 MCV 89.9 MCH 31.1 MCHC 34.6 RDW 12.8 Plt Count 216 Neut % (Auto) 78.0 H Lymph % (Auto) 13.5 L [place] % (Auto) 7.7 Eos % (Auto) 0.1 L Baso % (Auto) 0.7 Neut # (Auto) 8200 H Lymph # (Auto) 1400 [place] # (Auto) 800 Eos # (Auto) 0 Baso # (Auto) 100 PFSH Medical History (Updated 03/21/24 @ 12:23 by Deborah Maloney MD) Elevated cholesterol Anxiety (2011) Fibroid uterus Dysmenorrhea Surgical History (Updated 03/17/24 @ 19:41 by Angely Courtney) Anesthesia complication Status post laparoscopic supracervical hysterectomy (04/16/16) History of third molar tooth extraction Family History (Updated 03/17/24 @ 19:42 by Angely Courtney) Father Cancer Mother History of heart disease Brother History of heart disease Mental health problem Social History household members: spouse Smoking Status: Never smoker alcohol intake: never Discharge Assessment & Plan Assessment and Plan Plan of Treatment: Postoperative anterior, posterior repair, sacrospinous ligament fixation of symptomatic cystocele and rectocele and cervical stump prolapse. Patient with inability to completely empty her bladder. She is going to be self catheterizing. Routine precautions reviewed with the patient. She will call on 03/26 if she continues to need to self-catheterize. She is currently still trying to arrange pelvic floor physical therapy. Discharge Plan Discharge Plan Patient Disposition: Home Provider Discharge Comment: Patient to catheterize herself several times a day until bladder is mostly empty when she checks. Call if no improvement in urinary retention by 03/26. Go to ER if unable to urinate and can not catheterize herself Discharge orders & Medications Discharge Orders: Discharge (Order); Ordered 03/21/24 Ordered By: Deborah Maloney Prescriptions: Continued oxycodone 5 mg tablet 5 mg PO Q4H PRN (Reason: pain) Qty: 20 0RF levothyroxine 13 mcg capsule 13 mcg PO DAILY rosuvastatin [Crestor] 10 mg tablet 10 mg PO DAILY Follow up/Referrals: Isis Sosa DO [Primary Care Provider] - Deborah Maloney MD [Physician] - 2 Weeks (Patient has a postop appointment scheduled on 03/[address] Maloney and on 04/[address] Hernández) Diet/Activity/Treatments Diet: Regular Activity: No lifting over 10 lb. Nothing in vagina for 6 weeks. Skin/Wound/Dressing Care Report to your healthcare provider any signs of infection, such as:: chills, fever and increased pain Visit Report/Discharge Packet Stand Alone Forms: Patient Portal/API, Surgery Discharge Discharge Data Primary Care Provider: Isis Sosa Attending Provider: Leia Hernández
--- NOTE | 2024-03-21 13:03 | PC.NURSE ---
1300 - Discharge teaching completed, patient stated all of her questions were answered. Follow up visits made. Patient discharged in stable and ambulatory condition accompanied by partner.
== END 2024-03-21 13:02 | disposition home or self-care (01) ==
LOC: OR 08:10 → LABOR 12:18
PROVIDERS: PCP Obstetrics & Gynecology; Referring Provider Obstetrics & Gynecology; Visit Provider Obstetrics & Gynecology
PROC: (CPT 57260; principal; 2024-03-20 09:15)
DX: N81.6 Rectocele (principal); N81.10 Cystocele, unspecified
CPT/HCPCS: 57260; 36415; 85025; J0171; J0690; J1100; J1885; J2250; J2405; J2704; J3010

== ENCOUNTER → 2024-03-23 14:25 | Outpatient (CLI) | payer OTHER, SELFPAY ==
[2024-03-23 16:17] LABS: Appearance Urine UA CLEAR; Bilirubin Urine UA NEGATIVE (NEGATIVE); Color Urine UA YELLOW; Glucose Urine UA NEGATIVE (Negative); Ketones Urine UA NEGATIVE (NEGATIVE); Leukocyte Esterase Urine UA 2+ (NEGATIVE); Nitrite Urine UA NEGATIVE (Negative); Occult Blood Urine UA 3+ (Negative); Protein Urine UA NEGATIVE (Negative); Specific Gravity Urine UA <=1.005 (1.000-1.035); Urobilinogen Urine UA 0.2 E.U./dL (0.2)
[2024-03-23 16:21] LABS: pH Urine UA 5.5 (4.5-8.0)
[2024-03-23 16:25] LABS: Bacteria Urine Moderate (10-30); Culture Indicated Urine Specimen Cultured; RBC Urine 10-30/HPF (0-5/HPF); Squamous Epithelial Cell Urine 10-30 /HPF (0-5/HPF); Urine Volume 10mL (spun); WBC Urine 5-10/HPF (0-5/HPF)
== END ==
PROVIDERS: Referring Provider Obstetrics & Gynecology; Visit Provider Obstetrics & Gynecology
DX: R30.0 Dysuria (principal)
CPT/HCPCS: 81001; 87077; 87086

== ENCOUNTER → 2024-03-30 10:41 | Outpatient (CLI) | payer OTHER, SELFPAY | PROVIDERS: Visit Provider Specialist | DX: R31.9 Hematuria, unspecified (principal); R82.998 Other abnormal findings in urine | CPT/HCPCS: 87086 ==

== ENCOUNTER → 2024-04-09 16:25 | Outpatient (CLI) | payer OTHER, SELFPAY ==
[2024-04-09 17:32] LABS: Appearance Urine UA CLEAR; Bilirubin Urine UA NEGATIVE (NEGATIVE); Color Urine UA YELLOW; Glucose Urine UA NEGATIVE (Negative); Ketones Urine UA NEGATIVE (NEGATIVE); Leukocyte Esterase Urine UA 1+ (NEGATIVE); Nitrite Urine UA NEGATIVE (Negative); Occult Blood Urine UA NEGATIVE (Negative); Protein Urine UA NEGATIVE (Negative); Specific Gravity Urine UA >=1.030 (1.000-1.035); Urobilinogen Urine UA 0.2 E.U./dL (0.2)
[2024-04-09 17:40] LABS: Bacteria Urine Moderate (10-30); Culture Indicated Urine Specimen Cultured; RBC Urine None Seen (0-5/HPF); Squamous Epithelial Cell Urine 10-30 /HPF (0-5/HPF); Urine Volume 10mL (spun); WBC Urine 5-10/HPF (0-5/HPF)
== END ==
PROVIDERS: Referring Provider Specialist; Visit Provider Specialist
DX: R30.0 Dysuria (principal)
CPT/HCPCS: 81001; 87086

== ENCOUNTER → 2024-05-21 14:27 | Outpatient (CLI) | payer OTHER, SELFPAY | PROVIDERS: Visit Provider Nurse Practitioner Family | DX: N94.89 Other specified conditions associated with female genital organs and menstrual cycle (principal); R30.0 Dysuria | CPT/HCPCS: 87086; 87210 ==

== ENCOUNTER → 2024-06-25 13:57 | Outpatient (CLI) | payer OTHER, SELFPAY ==
--- NOTE | 2024-06-25 13:58 | DI.MG.S_ITS ---
BILATERAL DIGITAL SCREENING MAMMOGRAM 3D/2D WITH CAD: 06/25/2024 CLINICAL: Routine screening. Comparison is made to exams dated: 06/22/2023 mammogram, 06/07/2022 mammogram, and 06/09/2020 mammogram - [facility]. The breasts are extremely dense, which lowers the sensitivity of mammography (category d />75% glandular tissue). Current study was also evaluated with a Computer Aided Detection (CAD) system. There is a mole marker on the right breast. There are mole markers on the left breast. No significant masses, calcifications, or other findings are seen in either breast. There has been no significant interval change. IMPRESSION: NEGATIVE There is no mammographic evidence of malignancy. A 1 year screening mammogram is recommended. Based on the Tyrer Cuzick model (a risk assessment model) the patient's lifetime risk is 16.6% and her 10 year risk is 6.6%. According to the ACR, ACS, and NCCN guidelines, an annual breast MRI exam along with mammogram is recommended if the patient's lifetime risk is 20% or greater. This exam was interpreted at Station ID: [id number]. NOTE: For mammograms, a report in lay terms will be sent to the patient. Approximately 15% of breast malignancies will not be visualized mammographically. In the management of a palpable breast mass, a negative mammogram must not discourage biopsy of a clinically suspicious lesion. Electronically Signed By: Jayy [email or web address]:06/25/2024 18:43:04 copy to: BERTO GARCIA letter sent: Normal Exam ACR BI-RADS Category 1: Negative
== END ==
LOC: MAMMO 13:58
PROVIDERS: PCP Family Medicine; Referring Provider Family Medicine; Visit Provider Family Medicine
DX: Z12.31 Encounter for screening mammogram for malignant neoplasm of breast (principal); R92.343 Mammographic extreme density, bilateral breasts
CPT/HCPCS: 77063; 77067

== ENCOUNTER → 2025-07-04 16:46 | Outpatient (CLI) | payer OTHER, SELFPAY ==
--- NOTE | 2025-07-04 16:47 | DI.MG.S_ITS ---
MM screening mammo BI: 07/04/2025. BI-RADS: 1 CLINICAL: 59-year old female for bilateral screening mammogram. Tyrer-Cuzick lifetime risk of 16.5%. No personal or first-degree family history of breast cancer. PRIOR EXAMS: 06/25/2024, 06/22/2023, 06/07/2022, 06/09/2020, 05/04/2019, 05/18/2017, 03/12/2016. MAMMOGRAPHY TECHNIQUE: 2D and 3D (tomosynthesis) digital mammographic views obtained, with additional images as needed for full coverage. Current study was also evaluated with a Computer Aided Detection (CAD) system. DENSITY D. The breasts are extremely dense, which lowers the sensitivity of mammography. MAMMOGRAPHY FINDINGS Bilateral: No suspicious mass, asymmetry, microcalcification, or other abnormality seen. IMPRESSION: * No evidence of malignancy. RECOMMENDATIONS Bilateral * Annual screening mammography. OVERALL ASSESSMENT CATEGORY BI-RADS-1: Negative. The [employer] recommends annual screening mammography beginning at age 40 for women with average risk of breast cancer. ELECTRONICALLY SIGNED: Jennifer Boudreaux M.D. on 07/05/2025 at 08:31:22 AM PT Interpreting Station ID: [id number]
== END ==
PROVIDERS: PCP Family Medicine; Referring Provider Family Medicine; Visit Provider Family Medicine
DX: Z12.31 Encounter for screening mammogram for malignant neoplasm of breast (principal); R92.333 Mammographic heterogeneous density, bilateral breasts
CPT/HCPCS: 77063; 77067